=== PATIENT | female | born 2000 | race Two or more races ===

== ENCOUNTER 2023-07-30 02:51 | Emergency (ER) | payer OTHER ==
[~2023-07-30] VITALS: Ht 160 cm; Wt 60.2 kg
[2023-07-30 03:10] VITALS: BP 125/88; PULSE 128; RESP 14; O2SAT 99
== END 2023-07-30 04:06 | disposition home or self-care (01) ==
LOC: ER 02:51
DX: O20.0 Threatened abortion (principal); Z3A.11 11 weeks gestation of pregnancy